=== PATIENT | female | born 1955 | race Caucasian/White ===

== ENCOUNTER 2018-09-01 12:26 | Outpatient (CLI) | payer MEDICARE ==
--- NOTE | 2018-09-01 14:27 | ULT ---
BILATERAL RENAL ULTRASOUND: HISTORY: Neurogenic bladder. FINDINGS: The right kidney measures 10.9 cm in length and the left kidney measures 9.8 cm in length. No hydron ephrosis seen. There is a 2.5 cm cyst arising from the inferior pole of the right kidney. The left kidney is normal. The urinary bladder is unremarkable. IMPRESSION: Right renal cyst. POS: [facility]
== END 2018-09-01 12:27 | disposition home or self-care (01) ==
LOC: ULT 12:26
PROVIDERS: ATTEND Urology
DX: G35 Multiple sclerosis (principal); N31.9 Neuromuscular dysfunction of bladder, unspecified; N28.1 Cyst of kidney, acquired
CPT/HCPCS: 76770

== ENCOUNTER 2025-02-02 08:39 | Day surgery (SDC) | payer MEDICARE ==
[2025-02-02 09:06] LABS: #Basophils Less than 0.03 10x3/uL (0.0-0.2); #Eosinophils 0.15 10x3/uL (0.0-0.7); #Monocytes 0.56 10x3/uL (0.11-0.59); #Neutrophils 2.38 10x3/uL (1.40-6.50); %Basophils 0.4 % (0.0-1.0); %Eosinophils 3.3 % (0.0-10.0); %Lymphocytes 31.7 % (21.0-51.0); %Monocytes 12.2 % (0.0-10.0); %Neutrophils 52.0 % (42.0-75.0); Hematocrit 44.1 % (36.0-47.0); Hemoglobin 14.1 g/dL (12.0-16.0); Mean Corpuscular Hemoglobin 34.0 pg (27.0-31.0); Mean Corpuscular Volume 106.3 fL (78.0-98.0); Platelet Count 259 10x3/uL (130-400); Red Blood Cell (RBC) Count 4.15 mill/uL (4.20-5.40); White Blood Cell (WBC) Count 4.58 10x3/uL (4.8-10.8)
[2025-02-02 09:18] LABS: INR-International Normal Ratio 0.9; Prothrombin Time 12.3 sec (12.0-14.7)
[2025-02-02 09:19] LABS: PTT 29.6 sec (22.9-36.1)
[2025-02-02] MEDS ORDERED: Lidocaine 1% PF 5 ML VIAL ONE (10:35)
[2025-02-02] MEDS ORDERED: Sodium Bicarbonate 2.5 MEQ/5 ML SDV ONE (10:36)
[2025-02-02] MEDS ORDERED: Lidocaine 2% 6 ML (Jelly) SYR ONE (11:13)
== END 2025-02-02 13:35 | disposition home or self-care (01) ==
LOC: CT 08:39
PROVIDERS: ATTEND Urology
PROC: 0T9B00Z Drainage of Bladder with Drainage Device, Open Approach (ICD-10-PCS; principal; 2025-02-02)
DX: N31.9 Neuromuscular dysfunction of bladder, unspecified (principal); Z88.5 Allergy status to narcotic agent; Z88.1 Allergy status to other antibiotic agents; Z88.8 Allergy status to other drugs, medicaments and biological substances
CPT/HCPCS: 51102; 77002; 77012; 85025; 85610; 85730; C2627; 36000; 36415; J2250; J3010

== ENCOUNTER 2025-04-20 15:28 | Inpatient (IN) | payer MEDICARE ==
[~2025-04-20 15:28] MED LIST: Iopamidol-370 76% 500 ML MDV (1 ML CHARGE) ONE
[2025-04-20] MEDS ORDERED: Cefepime 2 GM VIAL ONE (15:58)
[2025-04-20 16:11] LABS: Hematocrit 43.8 % (36.0-47.0); Hemoglobin 14.3 g/dL (12.0-16.0); Mean Corpuscular Hemoglobin 33.3 pg (27.0-31.0); Mean Corpuscular Volume 101.9 fL (78.0-98.0); Platelet Count 188 10x3/uL (130-400); Red Blood Cell (RBC) Count 4.30 mill/uL (4.20-5.40); White Blood Cell (WBC) Count 18.36 10x3/uL (4.8-10.8)
[2025-04-20] MEDS ORDERED: Norepinephrine 8 MG/0.9% NS 250 ML ONE (16:19)
[2025-04-20 16:23] LABS: Bacteria/HPF 4+ HPF (None Seen); CAUTI Indications for Culture Fever or rigors; Glucose, Urine (Dipstick) Normal (Negative); Leukocyte 500 Leu/uL (Negative); Protein, Urine (Dipstick) Negative (Neg-Trace); Specific Gravity, Urine 1.002 (1.002-1.036); WBC/HPF Greater than 50 HPF (0-3)
[2025-04-20 16:25] LABS: Urine Culture Reflex Yes Yes
[2025-04-20 16:33] LABS: ALT (SGPT) 19 U/L (Less than 34); AST (SGOT) 27 U/L (11-34); Albumin 3.3 g/dL (3.1-4.5); Alkaline Phosphatase 113 U/L (40-110); Anion Gap 23 mmol/L (10-20); BUN (Urea Nitrogen) 34 mg/dL (9.8-20.1); Bilirubin, Total 0.8 mg/dL (0.3-1.2); Calc. Creatinine Clearance 0 mL/min (70-130); Calcium 9.2 mg/dL (7.8-10.44); Carbon Dioxide 17 mmol/L (23-31); Chloride 103 mmol/L (98-107); Globulin 3.3 g/dL (2.4-3.5); Glucose 120 mg/dL (83-110); Potassium 4.3 mmol/L (3.5-5.1); Sodium 139 mmol/L (136-145)
[2025-04-20 16:39] LABS: Anisocytosis SLIGHT = 6-15 cells HPF (0-5); Macrocytosis SLIGHT = 6-15 cells HPF (0-5); Platelet Adequacy Comment Platelets Normal
[2025-04-20] MEDS ORDERED: Vasopressin In 0.9 % NaCl 100 ML ONE (17:39)
[2025-04-20] MEDS ORDERED: Vasopressin In 0.9 % NaCl 0 ML ONE (17:39)
[2025-04-20] MEDS ORDERED: Vancomycin 1 GM/200 ML (FROZEN) BAG ONE (17:47)
[2025-04-20] MEDS ORDERED: Guaifenesin DM 100-10/5 ML UDCUP PO PRN (19:49)
[2025-04-20] MEDS ORDERED: Ondansetron PF 4 MG/2 ML Vial IVP PRN (19:49)
[2025-04-20] MEDS ORDERED: Calcium Carbonate 500 MG ChewTAB PO PRN (19:49)
[2025-04-20] MEDS ORDERED: Senokot S 8.6-50 MG TAB PO PRN (19:49)
[2025-04-20] MEDS ORDERED: Vasopressin In 0.9 % NaCl 100 ML IV SCH (20:00)
[2025-04-20] MEDS ORDERED: NOREPINEPHRINE 8 MG/250 ML-D5W 250 ML IVPB SCH (20:00)
[2025-04-20] MEDS ORDERED: DALFAMPRIDINE 10 MG PO SCH (21:00)
[2025-04-20] MEDS: Norepinephrine 8 MG/0.9% NS 250 ML IVPB SCH (21:08)
[2025-04-20 22:02] LABS: Legionella Urinary Ag Negative (Negative)
[2025-04-20 22:04] VITALS: BMI 28.9
[2025-04-20 22:17] LABS: Strep pneumo Urine Ag NEGATIVE (NEGATIVE)
[2025-04-20] MEDS: Baclofen 10 MG TAB PO SCH (23:01)
[2025-04-20] MEDS: VANCOMYCIN 1.75 GM/350 ML Premix BAG IVPB SCH (23:01)
[2025-04-20] MEDS: valACYclovir 500 MG TAB PO SCH (23:02)
[2025-04-20] MEDS: Rosuvastatin 10 MG TAB PO SCH (23:02)
[2025-04-21] MEDS ORDERED: Glucagon 1 MG/ML KIT IM PRN (00:24)
[2025-04-21] MEDS ORDERED: Dextrose 50% Abboject 50 ML SYRINGE SLOW IVP PRN (00:24)
[2025-04-21] MEDS: Hydrocortisone Sod Succ/PF 100 mg/2 ml Vial IVP SCH (00:52)
[2025-04-21] MEDS: diphenhydrAMINE 50 MG/ML VIAL IVP SCH (00:56)
[2025-04-21 04:46] LABS: Anion Gap 14 mmol/L (10-20); BUN (Urea Nitrogen) 29 mg/dL (9.8-20.1); Calc. Creatinine Clearance 89 mL/min (70-130); Calcium 7.9 mg/dL (7.8-10.44); Carbon Dioxide 18 mmol/L (23-31); Chloride 111 mmol/L (98-107); Glucose 156 mg/dL (83-110); Potassium 4.2 mmol/L (3.5-5.1); Sodium 139 mmol/L (136-145); Vancomycin, Random 13.4 ug/mL (See Comment)
[2025-04-21 04:50] LABS: Hematocrit 36.2 % (36.0-47.0); Hemoglobin 11.5 g/dL (12.0-16.0); Mean Corpuscular Hemoglobin 33.8 pg (27.0-31.0); Mean Corpuscular Volume 106.5 fL (78.0-98.0); Platelet Count 129 10x3/uL (130-400); Red Blood Cell (RBC) Count 3.40 mill/uL (4.20-5.40); White Blood Cell (WBC) Count 28.76 10x3/uL (4.8-10.8)
[2025-04-21 04:57] LABS: CRP, High Sensitivity at Bryan 26.08 mg/dL (< or = 0.5)
[2025-04-21 06:34] LABS: Burr Cells SLIGHT = 2-5 cells HPF (0-1); Macrocytosis SLIGHT = 6-15 cells HPF (0-5); Nucleated RBC (Manual Ct) 1 % (0); Platelet Adequacy Comment Platelets Decreased; Poikilocytosis SLIGHT = 6-15 cells HPF (0-5); Smudge Cells 1.9 %
[2025-04-21] MEDS ORDERED: Cholecalciferol 1,000 UNITS (25 MCG) TAB PO SCH (09:00)
[2025-04-21] MEDS: Enoxaparin 40 MG (0.4 mL) SYRINGE SC SCH (09:01)
[2025-04-21] MEDS: Pantoprazole 40 MG VIAL IVP SCH (09:03)
[2025-04-21] MEDS: Cholecalciferol 1,000 UNITS (25 MCG) TAB PO SCH (09:04)
[2025-04-21] MEDS: Mupirocin 1 GM TUBE NASAL DECOLONIZATION NASAL SCH (10:45)
[2025-04-21] MEDS: Vancomycin HCl 750 MG in Sodium Chloride 0.9% 250 ML 250 ML IVPB SCH (11:48)
[2025-04-21] MEDS: Acetylcysteine 10% 100 MG/ML (30 ml) SOLN PO SCH (11:57)
[2025-04-21] MEDS: Acetylcysteine 20% 200 MG/ML 30 ML VIAL PO SCH (11:58)
[2025-04-21] MEDS ORDERED: Vancomycin 1 GM in Premix 1 BAG IVPB SCH (18:00)
[2025-04-22 04:59] LABS: Vancomycin, Random 6.8 ug/mL (See Comment)
[2025-04-22 05:43] LABS: Hematocrit 34.4 % (36.0-47.0); Hemoglobin 10.7 g/dL (12.0-16.0); Mean Corpuscular Hemoglobin 33.2 pg (27.0-31.0); Mean Corpuscular Volume 106.8 fL (78.0-98.0); Platelet Count 116 10x3/uL (130-400); Red Blood Cell (RBC) Count 3.22 mill/uL (4.20-5.40); White Blood Cell (WBC) Count 22.96 10x3/uL (4.8-10.8)
[2025-04-22 05:49] LABS: ALT (SGPT) 19 U/L (Less than 34); AST (SGOT) 28 U/L (11-34); Albumin 2.3 g/dL (3.1-4.5); Alkaline Phosphatase 72 U/L (40-110); Anion Gap 11 mmol/L (10-20); BUN (Urea Nitrogen) 23 mg/dL (9.8-20.1); Bilirubin, Total 0.2 mg/dL (0.3-1.2); Calc. Creatinine Clearance 116 mL/min (70-130); Calcium 8.5 mg/dL (7.8-10.44); Carbon Dioxide 24 mmol/L (23-31); Chloride 111 mmol/L (98-107); Globulin 2.9 g/dL (2.4-3.5); Glucose 105 mg/dL (83-110); Potassium 3.6 mmol/L (3.5-5.1); Sodium 142 mmol/L (136-145)
[2025-04-22 06:05] LABS: Anisocytosis SLIGHT = 6-15 cells HPF (0-5); Macrocytosis SLIGHT = 6-15 cells HPF (0-5); Platelet Adequacy Comment Platelets Decreased; Polychromasia SLIGHT = 2-3 cells HPF (0-2)
[2025-04-22] MEDS: CO Q-10 CAPSULE 100 MG PO SCH (09:13)
[2025-04-22] MEDS: Pantoprazole 40 MG DR.TAB PO SCH (09:14)
[2025-04-22] MEDS: Azelastine 137 MCG/NASAL Spray 30 ML NS SCH (16:57)
[2025-04-22] MEDS: BIOTIN 1 MG PO SCH (16:59)
[2025-04-22] MEDS: Hydrocortisone Sod Succ/PF 100 mg/2 ml Vial IVP SCH (18:02)
[2025-04-22] MEDS: Ipratropium Bromide 0.06% Nasal Inhaler 15ml EA NARE PRN (20:32)
[2025-04-22] MEDS: Baclofen 10 MG TAB PO PRN (20:41)
[2025-04-23] MEDS ORDERED: Milk Of Magnesia 30 ML UDCUP PO PRN (11:12)
[2025-04-24 04:25] LABS: #Basophils 0.06 10x3/uL (0.0-0.2); #Eosinophils 0.06 10x3/uL (0.0-0.7); #Monocytes 0.68 10x3/uL (0.11-0.59); #Neutrophils 10.67 10x3/uL (1.40-6.50); %Basophils 0.5 % (0.0-1.0); %Eosinophils 0.5 % (0.0-10.0); %Lymphocytes 8.1 % (21.0-51.0); %Monocytes 5.3 % (0.0-10.0); %Neutrophils 83.3 % (42.0-75.0); Hematocrit 32.9 % (36.0-47.0); Hemoglobin 10.5 g/dL (12.0-16.0); Mean Corpuscular Hemoglobin 33.3 pg (27.0-31.0); Mean Corpuscular Volume 104.4 fL (78.0-98.0); Platelet Count 135 10x3/uL (130-400); Red Blood Cell (RBC) Count 3.15 mill/uL (4.20-5.40); White Blood Cell (WBC) Count 12.81 10x3/uL (4.8-10.8)
[2025-04-24 04:44] LABS: Anion Gap 14 mmol/L (10-20); BUN (Urea Nitrogen) 27 mg/dL (9.8-20.1); Calc. Creatinine Clearance 116 mL/min (70-130); Calcium 8.3 mg/dL (7.8-10.44); Carbon Dioxide 24 mmol/L (23-31); Chloride 109 mmol/L (98-107); Glucose 110 mg/dL (83-110); Potassium 3.6 mmol/L (3.5-5.1); Sodium 143 mmol/L (136-145)
[2025-04-24] MEDS: Hydrocortisone Sod Succ/PF 100 mg/2 ml Vial IVP SCH (17:44)
[2025-04-25 03:56] LABS: Hematocrit 33.0 % (36.0-47.0); Hemoglobin 10.6 g/dL (12.0-16.0); Mean Corpuscular Hemoglobin 33.4 pg (27.0-31.0); Mean Corpuscular Volume 104.1 fL (78.0-98.0); Platelet Count 167 10x3/uL (130-400); Red Blood Cell (RBC) Count 3.17 mill/uL (4.20-5.40); White Blood Cell (WBC) Count 13.22 10x3/uL (4.8-10.8)
[2025-04-25 04:02] LABS: Anion Gap 11 mmol/L (10-20); BUN (Urea Nitrogen) 25 mg/dL (9.8-20.1); Calc. Creatinine Clearance 121 mL/min (70-130); Calcium 8.1 mg/dL (7.8-10.44); Carbon Dioxide 26 mmol/L (23-31); Chloride 106 mmol/L (98-107); Glucose 106 mg/dL (83-110); Potassium 3.3 mmol/L (3.5-5.1); Sodium 140 mmol/L (136-145)
[2025-04-25 04:30] LABS: Macrocytosis SLIGHT = 6-15 cells HPF (0-5); Platelet Adequacy Comment Platelets Normal
[2025-04-25] MEDS ORDERED: Electrolyte Replacement Protocol 1 EACH FS SCH (04:30)
[2025-04-25] MEDS ORDERED: Magnesium 2 GM/50 ML(in water) 2 GM in Premix 1 BAG IVPB PRN (04:30)
[2025-04-25] MEDS ORDERED: PHOS-NAK 1 PKT PACK PO PRN (04:30)
[2025-04-25] MEDS: Potassium Chloride 20 MEQ in Premix 1 BAG IVPB PRN (04:58)
[2025-04-25] MEDS ORDERED: Baclofen 10 MG TAB PO PRN (12:26)
[2025-04-25] MEDS ORDERED: prednisoLONE 15 MG/5 ML UDCUP PO PRN (13:32)
[2025-04-25 13:54] LABS: Potassium 3.9 mmol/L (3.5-5.1)
[2025-04-25] MEDS: cefTRIAXone\\ROCEPHIN 2 GM in Sodium Chloride 0.9% 100 ML IVPB SCH (16:59)
[2025-04-25] MEDS: Furosemide 20 MG TAB PO SCH (17:00)
[2025-04-25] MEDS: Magnesium Oxide 400 MG TAB PO SCH (17:00)
[2025-04-25] MEDS: Melatonin 3 MG TAB PO SCH (20:46)
[2025-04-25] MEDS: Baclofen 10 MG TAB PO SCH (20:46)
[2025-04-26 04:30] LABS: Hematocrit 35.1 % (36.0-47.0); Hemoglobin 11.3 g/dL (12.0-16.0); Mean Corpuscular Hemoglobin 33.1 pg (27.0-31.0); Mean Corpuscular Volume 102.9 fL (78.0-98.0); Platelet Count 201 10x3/uL (130-400); Red Blood Cell (RBC) Count 3.41 mill/uL (4.20-5.40); White Blood Cell (WBC) Count 9.55 10x3/uL (4.8-10.8)
[2025-04-26 04:44] LABS: Albumin 2.2 g/dL (3.1-4.5); Anion Gap 15 mmol/L (10-20); BUN (Urea Nitrogen) 15 mg/dL (9.8-20.1); BUN/Creatinine Ratio 30.00; Calc. Creatinine Clearance 138 mL/min (70-130); Calcium 8.3 mg/dL (7.8-10.44); Carbon Dioxide 27 mmol/L (23-31); Chloride 105 mmol/L (98-107); Glucose 93 mg/dL (83-110); Potassium 3.0 mmol/L (3.5-5.1); Sodium 144 mmol/L (136-145)
[2025-04-26 05:25] LABS: Macrocytosis SLIGHT = 6-15 cells HPF (0-5); Platelet Adequacy Comment Platelets Normal; Polychromasia SLIGHT = 2-3 cells HPF (0-2)
[2025-04-26] MEDS: Hydrocortisone Sod Succ/PF 100 mg/2 ml Vial IVP SCH (09:34)
[2025-04-26 10:33] LABS: Potassium 3.7 mmol/L (3.5-5.1)
[2025-04-26 15:51] VITALS: BMI 31.4
[2025-04-27] MEDS: Acetaminophen 325 MG TAB PO PRN (03:11)
[2025-04-27 04:45] LABS: #Basophils 0.05 10x3/uL (0.0-0.2); #Eosinophils 0.21 10x3/uL (0.0-0.7); #Monocytes 0.99 10x3/uL (0.11-0.59); #Neutrophils 5.43 10x3/uL (1.40-6.50); %Basophils 0.5 % (0.0-1.0); %Eosinophils 2.2 % (0.0-10.0); %Lymphocytes 20.0 % (21.0-51.0); %Monocytes 10.5 % (0.0-10.0); %Neutrophils 57.5 % (42.0-75.0); Hematocrit 37.0 % (36.0-47.0); Hemoglobin 11.7 g/dL (12.0-16.0); Mean Corpuscular Hemoglobin 33.0 pg (27.0-31.0); Mean Corpuscular Volume 104.2 fL (78.0-98.0); Platelet Count 223 10x3/uL (130-400); Red Blood Cell (RBC) Count 3.55 mill/uL (4.20-5.40); White Blood Cell (WBC) Count 9.45 10x3/uL (4.8-10.8)
[2025-04-27 04:56] LABS: Albumin 2.1 g/dL (3.1-4.5); Anion Gap 17 mmol/L (10-20); BUN (Urea Nitrogen) 14 mg/dL (9.8-20.1); BUN/Creatinine Ratio 31.82; Calc. Creatinine Clearance 154 mL/min (70-130); Calcium 8.5 mg/dL (7.8-10.44); Carbon Dioxide 31 mmol/L (23-31); Chloride 100 mmol/L (98-107); Glucose 94 mg/dL (83-110); Potassium 3.1 mmol/L (3.5-5.1); Sodium 145 mmol/L (136-145)
[2025-04-27 05:30] LABS: Macrocytosis SLIGHT = 6-15 cells HPF (0-5); Platelet Adequacy Comment Platelets Normal
[2025-04-27 09:57] LABS: Potassium 3.5 mmol/L (3.5-5.1)
[2025-04-27 13:11] LABS: Potassium 3.7 mmol/L (3.5-5.1)
[2025-04-27 15:34] VITALS: BP 148/89; TEMP 98.4
== END 2025-04-27 18:55 | disposition home health service (06) | DRG 871 ==
LOC: ERS 15:28 → CCU 19:49 → PCU 04-22 10:41
PROVIDERS: ADMIT Student in an Organized Health Care Education/Training Program; ATTEND Student in an Organized Health Care Education/Training Program
PROC: 3E033XZ Introduction of Vasopressor into Peripheral Vein, Percutaneous Approach (ICD-10-PCS; 2025-04-20)
PROC: 3E043XZ Introduction of Vasopressor into Central Vein, Percutaneous Approach (ICD-10-PCS; 2025-04-20)
PROC: 3E04329 Introduction of Other Anti-infective into Central Vein, Percutaneous Approach (ICD-10-PCS; 2025-04-20)
PROC: 06HY33Z Insertion of Infusion Device into Lower Vein, Percutaneous Approach (ICD-10-PCS; 2025-04-20)
PROC: 3E03329 Introduction of Other Anti-infective into Peripheral Vein, Percutaneous Approach (ICD-10-PCS; principal; 2025-04-25)
DX: A41.9 Sepsis, unspecified organism (principal); G93.41 Metabolic encephalopathy; J18.9 Pneumonia, unspecified organism; R65.21 Severe sepsis with septic shock; J96.01 Acute respiratory failure with hypoxia; N17.9 Acute kidney failure, unspecified; E87.20 Acidosis, unspecified; I5A Non-ischemic myocardial injury (non-traumatic); G82.20 Paraplegia, unspecified; N10 Acute pyelonephritis; G35.D Multiple sclerosis, unspecified; N31.9 Neuromuscular dysfunction of bladder, unspecified; E78.5 Hyperlipidemia, unspecified; Z88.1 Allergy status to other antibiotic agents; Z88.8 Allergy status to other drugs, medicaments and biological substances; Z88.5 Allergy status to narcotic agent; Z90.710 Acquired absence of both cervix and uterus; Z98.890 Other specified postprocedural states; Z87.891 Personal history of nicotine dependence; Z79.899 Other long term (current) drug therapy
CPT/HCPCS: 36415; 36416; 36556; 71045; 74177; 80048; 80053; 80069; 80202; 81001; 83605; 83690; 83880; 84145; 84443; 84484; 85025; 86141; 87040; 87077; 87081; 87086; 87149; 87186; 87428; 87449; 87899; 93005; 93306; 93970; 94640; 96365; 96366; 96367; 96375; 99292; J0132; J0692; J0696; J1200; J1650; J1720; J2185; J2470; J2543; J3010; J3373; J3375; J3480; J3490; J7030; J7050; J7608; Q9967